=== PATIENT | male | born 2000 | race Caucasian/White ===

== ENCOUNTER 2021-03-14 10:58 | Inpatient (IN) | payer OTHER ==
[~2021-03-14] VITALS: Ht 182.9 cm; Wt 82.1 kg
[~2021-03-14 10:58] MED LIST: CLARITIN10 MG PO
[2021-03-14 10:59] VITALS: BP 94/58
[2021-03-14] MEDS ORDERED: FLONASE 0.05%50 MCG NARES (11:02)
[2021-03-14 11:39] LABS: ABSOLUTE LYMPHOCYTES 1.4 thou/uL (0.8-5.3); ABSOLUTE MONOCYTES 0.3 thou/uL (0.0-1.2); ABSOLUTE NEUTROPHILS 4.2 thou/uL (1.6-8.1); BASOPHILS 0.3 %; HEMATOCRIT 45.2 % (42.0-52.0); HEMOGLOBIN 15.6 gm/dL (14.0-18.0); LYMPHOCYTES 23.7 %; MCH 29.7 pg (26.0-34.0); MCHC 34.4 g/dL (28.0-37.0); MCV 86.3 fL (80.0-100.0); MONOCYTES 5.7 %; MPV 7.9 fl. (7.2-11.1); NUCLEATED RBCS 0 /100WBC; PLATELET COUNT* 184 thou/uL (150-400); POLYS 70.3 %; RBC 5.24 mil/uL (4.50-6.00); RDW-CV 14.3 % (10.5-14.5)
[2021-03-14 11:48] LABS: CREATININE 1.1 mg/dL (0.6-1.3); POTASSIUM 3.9 mmol/L (3.5-5.1)
[2021-03-14 11:53] LABS: ALBUMIN 3.3 g/dL (3.4-5.0); TOTAL BILIRUBIN 0.7 mg/dL (<0.1-1.0); TOTAL PROTEIN 8.6 g/dL (6.4-8.2)
[2021-03-14 16:30] VITALS: BP 96/48
[2021-03-14 19:13] VITALS: BP 105/58
[2021-03-14 23:59] VITALS: BP 102/57
[2021-03-15] VITALS: BP 128/80
[2021-03-15 01:20] LABS: HEMATOCRIT 45.4 % (42.0-52.0); HEMOGLOBIN 15.5 gm/dL (14.0-18.0); MCH 29.4 pg (26.0-34.0); MCHC 34.1 g/dL (28.0-37.0); MCV 86.4 fL (80.0-100.0); RBC 5.26 mil/uL (4.50-6.00); RDW-CV 14.6 % (10.5-14.5); WBC 5.6 thou/uL (4.0-11.0)
[2021-03-15 01:45] LABS: CALCIUM 8.6 mg/dL (8.5-10.1); CREATININE 1.1 mg/dL (0.6-1.3)
[2021-03-15 03:21] LABS: BE 0.7 mmol/L (-2 to +3); PCO2 35.9 mmHg (35.0-45.0); PO2 95.2 mmHg (75.0-100.0); pH 7.448 (7.340-7.450)
[2021-03-15 04:04] VITALS: BP 110/59
[2021-03-15 08:05] VITALS: BP 106/59
[2021-03-15 09:13] VITALS: BP 87/52; BP 92/56; BP 99/52
[2021-03-15 11:35] VITALS: BP 92/56
[2021-03-15 13:29] LABS: APTT 27.9 Seconds (25.0-31.3); INR 1.1; PROTIME 11.5 Seconds (9.20-11.50)
[2021-03-15 16:00] VITALS: BP 97/57
[2021-03-16 04:19] VITALS: BP 139/89
[2021-03-16 05:28] LABS: HEMATOCRIT 40.8 % (42.0-52.0); HEMOGLOBIN 13.8 gm/dL (14.0-18.0); MCH 29.1 pg (26.0-34.0); MCHC 33.9 g/dL (28.0-37.0); MCV 85.9 fL (80.0-100.0); MPV 8.1 fl. (7.2-11.1); NUCLEATED RBCS 0 /100WBC; PLATELET COUNT* 177 thou/uL (150-400); RBC 4.75 mil/uL (4.50-6.00); WBC 4.2 thou/uL (4.0-11.0)
[2021-03-16 05:40] LABS: ALBUMIN 2.8 g/dL (3.4-5.0); CALCIUM 8.4 mg/dL (8.5-10.1); CREATININE 0.8 mg/dL (0.6-1.3); MAGNESIUM 2.3 mg/dL (1.8-2.4); PHOSPHORUS* 3.6 mg/dL (2.5-4.9); POTASSIUM 3.9 mmol/L (3.5-5.1); TOTAL BILIRUBIN 0.6 mg/dL (<0.1-1.0); TOTAL PROTEIN 7.5 g/dL (6.4-8.2)
[2021-03-16 07:55] LABS: ABSOLUTE LYMPHOCYTES 1.4 thou/uL (0.8-5.3); ABSOLUTE MONOCYTES 0.4 thou/uL (0.0-1.2); ABSOLUTE NEUTROPHILS 2.4 thou/uL (1.6-8.1); ATYPICAL LYMPHS 4 %; PLATELET ESTIMATE ADEQUATE
[2021-03-16 07:56] LABS: ANISOCYTOSIS 1+; POIKILOCYTOSIS 1+
[2021-03-16 08:00] VITALS: BP 107/68
[2021-03-16 12:00] VITALS: BP 109/65
[2021-03-16 16:00] VITALS: BP 109/56
[2021-03-16 19:50] VITALS: BP 109/59
[2021-03-16 23:46] VITALS: BP 111/67; BP 114/69
[2021-03-17 04:39] LABS: ABSOLUTE LYMPHOCYTES 1.2 thou/uL (0.8-5.3); ABSOLUTE MONOCYTES 0.5 thou/uL (0.0-1.2); BASOPHILS 0.1 %; HEMATOCRIT 41.4 % (42.0-52.0); HEMOGLOBIN 14.1 gm/dL (14.0-18.0); LYMPHOCYTES 17.7 %; MCH 29.3 pg (26.0-34.0); MCHC 34.1 g/dL (28.0-37.0); MCV 85.9 fL (80.0-100.0); MONOCYTES 7.5 %; MPV 8.4 fl. (7.2-11.1); NUCLEATED RBCS 0 /100WBC; PLATELET COUNT* 200 thou/uL (150-400); POLYS 74.7 %; RBC 4.82 mil/uL (4.50-6.00); WBC 6.7 thou/uL (4.0-11.0)
[2021-03-17 04:56] VITALS: BP 100/63
[2021-03-17 05:06] LABS: ALBUMIN 2.9 g/dL (3.4-5.0); CALCIUM 8.6 mg/dL (8.5-10.1); CREATININE 0.8 mg/dL (0.6-1.3); MAGNESIUM 2.3 mg/dL (1.8-2.4); POTASSIUM 4.1 mmol/L (3.5-5.1); TOTAL BILIRUBIN 0.6 mg/dL (<0.1-1.0); TOTAL PROTEIN 7.6 g/dL (6.4-8.2)
[2021-03-17 08:00] VITALS: BP 101/58
[2021-03-17 09:55] LABS: BE 0.3 mmol/L (-2 to +3); PCO2 37.2 mmHg (35.0-45.0); PO2 92.4 mmHg (75.0-100.0); pH 7.432 (7.340-7.450)
--- NOTE | 2021-03-17 15:08 | CON ---
[address] [address] CONSULTATION Name: GALE NICOLE Room: [place] [address] ADM IN M.R.#: [id number] Admission: 03/14/21 Attend Phys: Tammy Palomino Discharge: Date of : 01 Report #: [id number] THIS REPORT FOR: cc: Edwin Beavers Vincent R. DO Pervez, Adeel MD ~ DOC #: [id number] Augustine Ch MD DATE OF CONSULTATION: 03/15/2021 CONSULT REQUESTED BY: Dr. Gallardo. INDICATION FOR CONSULTATION: Acute hypoxemic respiratory failure secondary to COVID-19. HISTORY OF PRESENT ILLNESS: A 20 years old gentleman, he has no past medical history, was recently diagnosed with COVID-19, did receive a prednisone taper as well as azithromycin in the form of a Z-Ziyad as an outpatient. His respiratory status subsequently worsened and he was admitted to [facility]. He did receive Decadron. He did not receive remdesivir during the hospitalization. He did briefly receive doxycycline and this was subsequently discontinued when procalcitonin was normal. The duration of time he was on doxycycline also not known to me at this time. The patient subsequently went home, was on oxygen upon discharge. We will also on dexamethasone. His respiratory status worsened and then, he subsequently came to this hospital yesterday. The patient states that he is here because he is having increasing shortness of breath. He has also had a cough. He had some yellow sputum. He has had a fever. He has had chills. He has had a sore throat. He currently is not complaining of chest pain. There is no swelling of lower extremities. There is no calf pain. He answers to the negative for 12 questions for review of systems, except as mentioned above. The patient was significantly short of breath this morning and briefly was on BiPAP. PAST MEDICAL HISTORY: He has no past medical history. CURRENT MEDICATIONS: List in [employer] Reviewed. HOME MEDICATIONS: See discussion above. He has received steroids recently. As above, he received azithromycin and doxycycline briefly; however, he likely did not receive a full course of either. I do not have details available. SOCIAL HISTORY: Lifetime nonsmoker. No known history [place] [address] CONSULTATION Name: NICOLEGALE Room: [address] IN [facility]#: [id number] Admission: 03/14/21 Attend Phys: Tammy Palomino Discharge: Date of : 01 Report #: [id number] illegal drug use. ALLERGIES: No known drug allergies. FAMILY HISTORY: His father is also admitted to this hospital with COVID-19. PHYSICAL EXAMINATION: GENERAL: He is alert, awake and oriented, did not appear to be in any distress at this time. VITAL SIGNS: Pulse of 79 and respiratory rate at the time of my evaluation was around 22-23. He was at 65% FiO2 with 50 liters of 3 with a heated high-flow nasal cannula. I switched him over to a green high flow nasal cannula, so far he is saturating in the high 90s on 15 liters. He had a fever last night of 38.1. He is afebrile with a temperature of 36.3 now. HEENT: Head is normocephalic and atraumatic. Pupils are equal and reactive. His mucous membranes appear to be moist. NECK: Does not show raised JVP, asymmetry, mass or lymph nodes. CHEST: Symmetrical expansion on inspection and palpation. On auscultation, breath sounds are bilaterally equal. I do not hear any added sounds. HEART: Regular. There is no murmur. ABDOMEN: Soft and nontender. EXTREMITIES: Lower extremities show no edema. He possibly has some minimal varicose veins. SKIN: Dry and intact. NEUROLOGIC: Moves all extremities bilaterally equally and spontaneously. No focal deficit identified. IMAGING: The patient had a chest x-ray done yesterday, was reviewed and compared with the x-ray done today, both of these show extensive infiltrates consistent with COVID-19. There are some lobar infiltrates in the right middle lobe and left lower lobe as well. In addition, on the x-ray done this morning, there is interval development of subcutaneous emphysema. There is a question regarding whether the patient has apical pneumothoraces as well. LABORATORY DATA: The patient's lab work in [facility] reviewed. Elevated LFTs noted. ABGs consistent with acute type 1 respiratory failure in [facility] reviewed. D-dimer is mildly elevated at 0.54. ASSESSMENT AND PLAN: 1. Acute hypoxemic respiratory failure, secondary to COVID-19. Considering that he has some subcutaneous emphysema and it will be possible that he has tiny pneumothoraces, I will try to avoid use of BiPAP less essential. Also, we will try to reduce flow of oxygen. Therefore, I switched him over for now to green high flow nasal cannula. We will continue to titrate. [address] [address] CONSULTATION Name: GALE NICOLE Room: [facility] ADM IN M.R.#: [id number] Admission: 03/14/21 Attend Phys: Tammy Palomino Discharge: Date of : 01 Report #: [id number] 2. COVID-19, agree with dexamethasone. For now, I kept the current dose of 6 mg. Agree with remdesivir, we will continue. His liver function tests are elevated, but benefit appears to be greater than the risk. We will continue, follow liver function tests. I will go ahead and give him Actemra. He has received 1 unit of convalescent plasma. I do not feel strongly either way about giving him or holding off on the second unit. We will follow and advise. For now, I did not order. 3. Pulmonary infiltrates. There are some lobar infiltrates in the left lower lobe as well as right middle lobe. Therefore, I favor continuing with broad spectrum antibiotics. Currently, he is on vancomycin and Zosyn. He did have a sputum culture, which was sent. Prior to these being started, I ordered some more cultures and serologies. If we do not find any methicillin-resistant Staphylococcus aureus, then I will be inclined to discontinue vancomycin. I will continue Zosyn for now. Also, I will try to investigate further how many doses of Zithromax and doxycycline he already has received. If he has not received a full course, then I will be inclined to give him azithromycin for atypical coverage. 4. Evaluation for thromboembolic phenomena. My suspicion is not high at this time, but I would like to do venous Dopplers. 5. Deep venous thrombosis prophylaxis, Lovenox. I will increase dose to intermediate dose. 6. Subcutaneous emphysema/possible tiny pneumothoraces, avoiding positive airway pressure therapy if possible. We will give him nebulized bronchodilators. We will follow closely. 7. Clostridium difficile prophylaxis, Lactinex. Thanks for this consultation. The patient is critically ill at this time with acute hypoxemic respiratory failure secondary to COVID-19. Total time spent providing critical care to this patient today exceeds 41 minutes. MD JIMMY Hayes/GEOVANY <ELECTRONICALLY SIGNED> By: Augustine hC MD 03/17/21 1508 1430 [id number] Ch MD /nt
[2021-03-17 19:30] VITALS: BP 107/65
[2021-03-17 23:46] VITALS: BP 117/63
[2021-03-18] VITALS (8 sets, daily range): BP systolic 85–113; BP diastolic 46–77
[2021-03-18 13:50] LABS: ABSOLUTE LYMPHOCYTES 1.2 thou/uL (0.8-5.3); ABSOLUTE MONOCYTES 0.5 thou/uL (0.0-1.2); ABSOLUTE NEUTROPHILS 8.8 thou/uL (1.6-8.1); BASOPHILS 0.4 %; EOSINOPHILS 0.1 %; HEMATOCRIT 42.9 % (42.0-52.0); HEMOGLOBIN 14.5 gm/dL (14.0-18.0); LYMPHOCYTES 11.5 %; MCHC 33.8 g/dL (28.0-37.0); MCV 85.7 fL (80.0-100.0); MONOCYTES 4.4 %; NUCLEATED RBCS 0 /100WBC; PLATELET COUNT* 233 thou/uL (150-400); POLYS 83.6 %; RBC 5.01 mil/uL (4.50-6.00); WBC 10.5 thou/uL (4.0-11.0)
[2021-03-18 14:04] LABS: ALBUMIN 2.9 g/dL (3.4-5.0); CREATININE 0.9 mg/dL (0.6-1.3); MAGNESIUM 2.1 mg/dL (1.8-2.4); POTASSIUM 4.3 mmol/L (3.5-5.1); TOTAL BILIRUBIN 0.6 mg/dL (<0.1-1.0); TOTAL PROTEIN 7.3 g/dL (6.4-8.2)
--- NOTE | 2021-03-18 16:11 | EKG ---
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
[2021-03-18 23:06] LABS: MYCOPLASMA PNEUMONIA IgG 211 U/mL (0-99); MYCOPLASMA PNEUMONIA IgM <770 U/mL (0-769)
[2021-03-19] VITALS (17 sets, daily range): BP systolic 94–110; BP diastolic 45–71
[2021-03-19 03:20] LABS: HEMOGLOBIN 15.3 gm/dL (14.0-18.0); MCH 29.2 pg (26.0-34.0); MCV 86.1 fL (80.0-100.0); RBC 5.23 mil/uL (4.50-6.00); RDW-CV 14.2 % (10.5-14.5)
[2021-03-19 03:28] LABS: CALCIUM 8.2 mg/dL (8.5-10.1); CREATININE 0.8 mg/dL (0.6-1.3); POTASSIUM 4.3 mmol/L (3.5-5.1)
[2021-03-20] VITALS (16 sets, daily range): BP systolic 84–108; BP diastolic 36–61
[2021-03-20 03:17] LABS: ABSOLUTE LYMPHOCYTES 1.4 thou/uL (0.8-5.3); EOSINOPHILS 0.2 %; NUCLEATED RBCS 0 /100WBC
[2021-03-20 03:28] LABS: ABSOLUTE MONOCYTES 0.7 thou/uL (0.0-1.2); BASOPHILS 0.3 %; HEMATOCRIT 44.1 % (42.0-52.0); HEMOGLOBIN 14.8 gm/dL (14.0-18.0); LYMPHOCYTES 9.1 %; MCH 28.7 pg (26.0-34.0); MCHC 33.6 g/dL (28.0-37.0); MCV 85.3 fL (80.0-100.0); MONOCYTES 4.5 %; MPV 8.3 fl. (7.2-11.1); PLATELET COUNT* 205 thou/uL (150-400); POLYS 85.9 %; RBC 5.17 mil/uL (4.50-6.00); RDW-CV 14.3 % (10.5-14.5); WBC 15.1 thou/uL (4.0-11.0)
[2021-03-20 03:49] LABS: ALBUMIN 2.9 g/dL (3.4-5.0); CALCIUM 8.5 mg/dL (8.5-10.1); CREATININE 0.9 mg/dL (0.6-1.3); MAGNESIUM 2.2 mg/dL (1.8-2.4); POTASSIUM 4.2 mmol/L (3.5-5.1); TOTAL BILIRUBIN 0.5 mg/dL (<0.1-1.0); TOTAL PROTEIN 7.2 g/dL (6.4-8.2)
[2021-03-21] VITALS (17 sets, daily range): BP systolic 89–106; BP diastolic 42–77
[2021-03-21 04:29] LABS: HEMATOCRIT 44.9 % (42.0-52.0); HEMOGLOBIN 14.9 gm/dL (14.0-18.0); MCH 28.4 pg (26.0-34.0); MCHC 33.3 g/dL (28.0-37.0); MCV 85.2 fL (80.0-100.0); MPV 8.6 fl. (7.2-11.1); RBC 5.26 mil/uL (4.50-6.00); RDW-CV 13.9 % (10.5-14.5); WBC 15.7 thou/uL (4.0-11.0)
[2021-03-21 04:37] LABS: CALCIUM 8.3 mg/dL (8.5-10.1); CREATININE 0.8 mg/dL (0.6-1.3); POTASSIUM 4.1 mmol/L (3.5-5.1)
[2021-03-21 11:51] LABS: ALBUMIN 3.1 g/dL (3.4-5.0); DIRECT BILIRUBIN 0.2 mg/dL (<0.1-0.3); TOTAL BILIRUBIN 0.5 mg/dL (<0.1-1.0); TOTAL PROTEIN 6.7 g/dL (6.4-8.2)
[2021-03-22] VITALS (10 sets, daily range): BP systolic 83–140; BP diastolic 43–78
[2021-03-23] VITALS: BP 100/58
[2021-03-23 04:05] VITALS: BP 105/73
[2021-03-23 06:29] LABS: HEMATOCRIT 42.5 % (42.0-52.0); HEMOGLOBIN 14.2 gm/dL (14.0-18.0); MCH 28.8 pg (26.0-34.0); MCHC 33.4 g/dL (28.0-37.0); MCV 86.3 fL (80.0-100.0); MPV 8.6 fl. (7.2-11.1); RBC 4.93 mil/uL (4.50-6.00); WBC 13.8 thou/uL (4.0-11.0)
[2021-03-23 06:41] LABS: CALCIUM 8.4 mg/dL (8.5-10.1); CREATININE 0.7 mg/dL (0.6-1.3); POTASSIUM 3.8 mmol/L (3.5-5.1)
[2021-03-23 08:00] VITALS: BP 102/61
[2021-03-23 12:00] VITALS: BP 99/56
[2021-03-23 16:00] VITALS: BP 98/54
[2021-03-23 20:30] VITALS: BP 108/59
[2021-03-24] VITALS (20 sets, daily range): BP systolic 79–107; BP diastolic 41–65
[2021-03-24 05:57] LABS: HEMATOCRIT 43.5 % (42.0-52.0); HEMOGLOBIN 14.8 gm/dL (14.0-18.0); MCH 29.1 pg (26.0-34.0); MCV 85.7 fL (80.0-100.0); MPV 8.5 fl. (7.2-11.1); RBC 5.08 mil/uL (4.50-6.00); RDW-CV 14.1 % (10.5-14.5); WBC 10.2 thou/uL (4.0-11.0)
[2021-03-24 06:10] LABS: CALCIUM 8.3 mg/dL (8.5-10.1); CREATININE 0.7 mg/dL (0.6-1.3); POTASSIUM 3.9 mmol/L (3.5-5.1)
[2021-03-24 14:27] LABS: BE -0.4 mmol/L (-2 to +3); PCO2 38.7 mmHg (35.0-45.0)
[2021-03-24 14:28] LABS: PO2 142.9 mmHg (75.0-100.0)
[2021-03-24 15:34] LABS: HEMATOCRIT 48.8 % (42.0-52.0); HEMOGLOBIN 16.4 gm/dL (14.0-18.0); MCHC 33.6 g/dL (28.0-37.0); MCV 86.2 fL (80.0-100.0); MPV 8.7 fl. (7.2-11.1); NUCLEATED RBCS 0 /100WBC; PLATELET COUNT* 240 thou/uL (150-400); RBC 5.66 mil/uL (4.50-6.00); RDW-CV 14.4 % (10.5-14.5); WBC 14.8 thou/uL (4.0-11.0)
[2021-03-24 15:57] LABS: ALBUMIN 3.9 g/dL (3.4-5.0); ALKALINE PHOSPHATASE 61 U/L (46-116); ANION GAP 6 mmol/L (7-16); BUN 30 mg/dL (7-18); CALCIUM 8.9 mg/dL (8.5-10.1); CHLORIDE 101 mmol/L (98-107); CO2 29 mmol/L (21-32); CREATININE 0.8 mg/dL (0.6-1.3); GLUCOSE 107 mg/dL (70-99); LIPASE 672 U/L (73-393); MAGNESIUM 2.3 mg/dL (1.8-2.4); POTASSIUM 3.9 mmol/L (3.5-5.1); SGOT 39 U/L (15-37); SGPT 208 U/L (30-65); SODIUM 136 mmol/L (136-145); TOTAL BILIRUBIN 0.7 mg/dL (<0.1-1.0); TROPONIN-I LEVEL <0.06 ng/mL (<0.06)
[2021-03-24 16:07] LABS: ABSOLUTE MONOCYTES 0.4 thou/uL (0.0-1.2); ABSOLUTE NEUTROPHILS 13.3 thou/uL (1.6-8.1); ATYPICAL LYMPHS 2 %; PLATELET ESTIMATE ADEQUATE
[2021-03-25] VITALS (39 sets, daily range): BP systolic 88–102; BP diastolic 36–64
[2021-03-25 06:24] LABS: ABSOLUTE BASOPHILS 0.1 thou/uL (0.0-0.2); ABSOLUTE LYMPHOCYTES 2.2 thou/uL (0.8-5.3); ABSOLUTE MONOCYTES 1.4 thou/uL (0.0-1.2); ABSOLUTE NEUTROPHILS 13.8 thou/uL (1.6-8.1); BASOPHILS 0.4 %; EOSINOPHILS 0.1 %; HEMATOCRIT 43.9 % (42.0-52.0); HEMOGLOBIN 14.7 gm/dL (14.0-18.0); LYMPHOCYTES 12.8 %; MCH 28.6 pg (26.0-34.0); MCHC 33.5 g/dL (28.0-37.0); MCV 85.5 fL (80.0-100.0); MONOCYTES 7.9 %; MPV 8.8 fl. (7.2-11.1); NUCLEATED RBCS 0 /100WBC; PLATELET COUNT* 194 thou/uL (150-400); POLYS 78.8 %; RBC 5.13 mil/uL (4.50-6.00); RDW-CV 14.2 % (10.5-14.5); WBC 17.5 thou/uL (4.0-11.0)
[2021-03-25 06:34] LABS: CALCIUM 8.4 mg/dL (8.5-10.1); CREATININE 0.7 mg/dL (0.6-1.3); MAGNESIUM 2.2 mg/dL (1.8-2.4); PHOSPHORUS* 4.2 mg/dL (2.5-4.9); POTASSIUM 3.8 mmol/L (3.5-5.1)
--- NOTE | 2021-03-25 17:28 | EKG ---
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 : 2000 Requested By: Harrison Gallardo Order Number: [id number] Reading MD: Willie Polanco Measurements Intervals [place] Rate: 84 P: 52 ND: 170 QRS: 35 QRSD: 94 T: 43 QT: 374 QTc: 443 Interpretive Statements Sinus rhythm ST elev, probable normal early repol pattern Compared to ECG 03/18/2021 08:19:52 ST (T wave) deviation now present Electronically Signed On 03-25-2021 17:28:24 CDT by Willie Polanco [email or web address] <ELECTRONICALLY SIGNED> By: Willie Polanco MD, FAC 03/25/21 1728 1800 1800 Willie Polanco MD, [facility] /EPI
[2021-03-26] VITALS (30 sets, daily range): BP systolic 83–114; BP diastolic 37–76
[2021-03-26 05:41] LABS: ABSOLUTE EOSINOPHILS 0.1 thou/uL (0.0-0.7); ABSOLUTE LYMPHOCYTES 2.5 thou/uL (0.8-5.3); ABSOLUTE MONOCYTES 1.4 thou/uL (0.0-1.2); ABSOLUTE NEUTROPHILS 9.8 thou/uL (1.6-8.1); BASOPHILS 0.3 %; EOSINOPHILS 0.9 %; HEMATOCRIT 41.4 % (42.0-52.0); HEMOGLOBIN 13.9 gm/dL (14.0-18.0); LYMPHOCYTES 18.3 %; MCH 28.9 pg (26.0-34.0); MCHC 33.6 g/dL (28.0-37.0); MCV 86.2 fL (80.0-100.0); MONOCYTES 9.8 %; MPV 8.9 fl. (7.2-11.1); NUCLEATED RBCS 0 /100WBC; PLATELET COUNT* 167 thou/uL (150-400); POLYS 70.7 %; RBC 4.81 mil/uL (4.50-6.00); RDW-CV 14.3 % (10.5-14.5); WBC 13.9 thou/uL (4.0-11.0)
[2021-03-26 06:08] LABS: ALBUMIN 2.9 g/dL (3.4-5.0); CALCIUM 7.9 mg/dL (8.5-10.1); CREATININE 0.7 mg/dL (0.6-1.3); MAGNESIUM 2.1 mg/dL (1.8-2.4); POTASSIUM 3.9 mmol/L (3.5-5.1); TOTAL BILIRUBIN 0.4 mg/dL (<0.1-1.0); TOTAL PROTEIN 6.1 g/dL (6.4-8.2)
[2021-03-27] VITALS (40 sets, daily range): BP systolic 74–106; BP diastolic 38–67
[2021-03-27 14:33] LABS: HEMATOCRIT 41.9 % (42.0-52.0); HEMOGLOBIN 14.3 gm/dL (14.0-18.0); MCH 29.1 pg (26.0-34.0); MCHC 34.1 g/dL (28.0-37.0); MCV 85.3 fL (80.0-100.0); MPV 8.5 fl. (7.2-11.1); NUCLEATED RBCS 0 /100WBC; PLATELET COUNT* 186 thou/uL (150-400); RBC 4.91 mil/uL (4.50-6.00); WBC 14.3 thou/uL (4.0-11.0)
[2021-03-27 14:48] LABS: ALBUMIN 3.2 g/dL (3.4-5.0); CALCIUM 8.3 mg/dL (8.5-10.1); CREATININE 0.8 mg/dL (0.6-1.3); POTASSIUM 4.2 mmol/L (3.5-5.1); TOTAL BILIRUBIN 0.5 mg/dL (<0.1-1.0); TOTAL PROTEIN 6.5 g/dL (6.4-8.2)
[2021-03-27 14:52] LABS: ABSOLUTE LYMPHOCYTES 1.6 thou/uL (0.8-5.3); ABSOLUTE MONOCYTES 0.3 thou/uL (0.0-1.2); ABSOLUTE NEUTROPHILS 12.4 thou/uL (1.6-8.1)
[2021-03-27 14:53] LABS: PLATELET ESTIMATE ADEQUATE
[2021-03-28] VITALS (28 sets, daily range): BP systolic 81–108; BP diastolic 32–64
[2021-03-28 05:22] LABS: ABSOLUTE BASOPHILS 0.1 thou/uL (0.0-0.2); ABSOLUTE EOSINOPHILS 0.1 thou/uL (0.0-0.7); ABSOLUTE LYMPHOCYTES 2.8 thou/uL (0.8-5.3); ABSOLUTE MONOCYTES 1.2 thou/uL (0.0-1.2); ABSOLUTE NEUTROPHILS 10.4 thou/uL (1.6-8.1); BASOPHILS 0.4 %; EOSINOPHILS 0.8 %; HEMATOCRIT 40.7 % (42.0-52.0); HEMOGLOBIN 13.8 gm/dL (14.0-18.0); LYMPHOCYTES 19.2 %; MCH 29.2 pg (26.0-34.0); MCHC 33.8 g/dL (28.0-37.0); MCV 86.4 fL (80.0-100.0); MONOCYTES 8.5 %; MPV 8.4 fl. (7.2-11.1); NUCLEATED RBCS 0 /100WBC; PLATELET COUNT* 159 thou/uL (150-400); POLYS 71.1 %; RBC 4.71 mil/uL (4.50-6.00); RDW-CV 14.3 % (10.5-14.5); WBC 14.7 thou/uL (4.0-11.0)
[2021-03-28 05:35] LABS: CALCIUM 8.1 mg/dL (8.5-10.1); CREATININE 0.6 mg/dL (0.6-1.3); POTASSIUM 3.7 mmol/L (3.5-5.1)
[2021-03-29] VITALS (15 sets, daily range): BP systolic 79–103; BP diastolic 36–70
[2021-03-29 02:09] LABS: CALCIUM 8.7 mg/dL (8.5-10.1); CREATININE 0.7 mg/dL (0.6-1.3)
--- NOTE | 2021-03-29 10:24 | EKG ---
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[employer]: ANJANA : 2000 Requested By: Harrison Gallardo Order Number: [id number] Reading MD: Alexis Kate Measurements Intervals [place] Rate: 61 P: 52 IA: 175 QRS: 31 QRSD: 115 T: 29 QT: 414 QTc: 417 Interpretive Statements Sinus rhythm Nonspecific intraventricular conduction delay ST elev, probable normal early repol pattern Compared to ECG 03/24/2021 18:00:58 ST (T wave) deviation still present Electronically Signed On 03-29-2021 10:24:01 CDT by Alexis Kate [email or web address] <ELECTRONICALLY SIGNED> By: Alexis Kate MD, [facility] 03/29/21 1024 0129 0129 Alexis Kate MD, [facility] /EPI
[2021-03-29 13:12] LABS: BE 0.6 mmol/L (-2 to +3); PCO2 44.1 mmHg (35.0-45.0); pH 7.388 (7.340-7.450)
[2021-03-30 00:05] VITALS: BP 100/65
[2021-03-30 03:56] VITALS: BP 93/47
[2021-03-30 06:25] LABS: HEMOGLOBIN 13.6 gm/dL (14.0-18.0); MCH 29.3 pg (26.0-34.0); MCV 86.1 fL (80.0-100.0); MPV 8.3 fl. (7.2-11.1); RBC 4.65 mil/uL (4.50-6.00); RDW-CV 14.3 % (10.5-14.5); WBC 11.8 thou/uL (4.0-11.0)
[2021-03-30 06:34] LABS: CALCIUM 8.4 mg/dL (8.5-10.1); CREATININE 0.7 mg/dL (0.6-1.3); POTASSIUM 3.7 mmol/L (3.5-5.1)
[2021-03-30 09:00] VITALS: BP 102/57
[2021-03-30 13:33] VITALS: BP 117/69
[2021-03-30 16:00] VITALS: BP 94/58
[2021-03-31 04:07] VITALS: BP 87/45
[2021-03-31 04:36] LABS: HEMATOCRIT 39.8 % (42.0-52.0); HEMOGLOBIN 13.3 gm/dL (14.0-18.0); MCH 29.1 pg (26.0-34.0); MCHC 33.3 g/dL (28.0-37.0); MCV 87.3 fL (80.0-100.0); MPV 8.3 fl. (7.2-11.1); RBC 4.56 mil/uL (4.50-6.00); RDW-CV 14.7 % (10.5-14.5)
[2021-03-31 04:57] LABS: CALCIUM 8.5 mg/dL (8.5-10.1); CREATININE 0.7 mg/dL (0.6-1.3); POTASSIUM 3.9 mmol/L (3.5-5.1)
[2021-03-31 08:22] VITALS: BP 98/56
[2021-03-31] MEDS ORDERED: PROAIR HFA8.5 GM INH (11:17)
[2021-03-31] MEDS ORDERED: MEDROL DOSPAK21 TA1 PO (11:17)
[2021-03-31 11:47] VITALS: BP 103/60
[2021-03-31 15:33] VITALS: BP 111/64
[2021-04-01 01:08] VITALS: BP 102/58
[2021-04-01 05:43] VITALS: BP 131/80
[2021-04-01 12:00] VITALS: BP 97/47
[2021-04-01 15:42] VITALS: BP 97/47
[2021-04-01 15:46] VITALS: BP 97/47
--- NOTE | 2021-04-01 15:54 | 2DMMODE ---
[place] [address] 2 D/M-MODE ECHOCARDIOGRAM Name: NICOLEGALE Room: [address] ADM IN .Sandra.#: [id number] Admission: 03/14/21 Attend Phys: Harrison Gallardo Discharge: Date of : 01 Date of Service: 04/01/21 1554 Report #: [id number] THIS REPORT FOR: cc: Edwin Beavers Vincent R. DO Liston,Willie Melo MD [facility] ~ APPROVED REPORT Study performed: 04/01/2021 10:32:59 EXAM: Comprehensive 2D, Doppler, and color-flow Echocardiogram Patient Location: In-Patient Room #: 207 Status: routine BSA: 2.04 HR: 85 bpm BP: 131/80 mmHg Rhythm: NSR Other Information Study Quality: Good Indications hypoxemia 2D Dimensions IVSd: 8.31 (7-11mm) LVOT Diam: 21.55 (18-24mm) LVDd: 53.69 mm PWd: 8.60 (7-11mm) Ascending Ao: 30.23 (22-36mm) LVDs: 34.60 (25-40mm) Aortic Root: 30.17 mm Volumes Left Atrial Volume (Systole) LA ESV Index: 20.70 mL/m2 Aortic Valve AoV Peak Subhash.: 1.05 m/s AO Peak Gr.: 4.42 mmHg LVOT Max P.77 mmHg AO Mean Gr.: 2.31 mmHg LVOT Mean P.77 mmHg LVOT Max V: 0.97 m/s AO V2 VTI: 16.34 cm LVOT Mean V: 0.61 m/s OLEG (VTI): 3.49 cm2 LVOT V1 VTI: 15.62 [place] [address] 2 D/M-MODE ECHOCARDIOGRAM Name: GALE NICOLE Room: [address] IN .R.#: [id number] Admission: 03/14/21 Attend Phys: Harrison Gallardo Discharge: Date of : 01 Date of Service: 04/01/21 1554 Report #: [id number] Mitral Valve E/A Ratio: 1.34 MV Decel. Time: 261.06 ms MV E Max Subhash.: 0.66 m/s MV PHT: 75.71 ms MVA (PHT): 2.91 cm2 TDI E/Lateral E': 3.30 E/Medial E': 4.13 Medial E' Subhash.: 0.16 m/s Lateral E' Subhash.: 0.20 m/s Pulmonary Valve PV Peak Subhash.: 0.99 m/s PV Peak Gr.: 3.92 mmHg Tricuspid Valve RAP Estimate: 5.00 mmHg TR Peak Gr.: 17.40 mmHg RVSP: 22.00 mmHg PA Pressure: 22.00 mmHg Left Ventricle The left ventricle is normal size. There is normal LV segmental wall motion. There is normal left ventricular wall thickness. Left ventricular systolic function is normal. LVEF is 55-60%. Grade IV - fixed restrictive diastolic dysfunction. Right Ventricle The right ventricle is normal size. The right ventricular systolic function is normal. Atria The left atrium size is normal. The right atrium size is normal. Aortic Valve The aortic valve is normal in structure. No aortic regurgitation is present. There is no aortic valvular stenosis. Mitral Valve The mitral valve is normal in structure. There is no mitral valve regurgitation noted. No evidence of mitral valve stenosis. Tricuspid Valve The tricuspid valve is normal in structure. Mild tricuspid regurgitation. [place] [address] 2 D/M-MODE ECHOCARDIOGRAM Name: GALE NICOLE Room: [address] IN [facility]#: [id number] Admission: 03/14/21 Attend Phys: Harrison Gallardo Discharge: Date of : 01 Date of Service: 04/01/21 1554 Report #: [id number] Pulmonic Valve The pulmonary valve is normal in structure. There is no pulmonic valvular regurgitation. Great Vessels The aortic root is normal in size. IVC is normal in size and collapses >50% with inspiration. Pericardium There is no pericardial effusion. <Conclusion> The left ventricle is normal size. There is normal left ventricular wall thickness. Left ventricular systolic function is normal. LVEF is 55-60%. Grade IV - fixed restrictive diastolic dysfunction. There is normal LV segmental wall motion. Mild tricuspid regurgitation. IVC is normal in size and collapses >50% with inspiration. <ELECTRONICALLY SIGNED> By: Willie Polanco MD, [facility] 04/01/21 1554 1554 1554 Willie Polanco MD, FAC /INF
[2021-04-01 16:00] VITALS: BP 94/57
[2021-04-01] MEDS ORDERED: MIDODRINE HCL10 MG PO (21:53)
== END 2021-04-01 18:33 | disposition home or self-care (01) | DRG 871 ==
LOC: M.ERS 10:58 → M.TBA-ER 12:05 → M.2W 12:05 → M.ICU 03-18 19:40 → M.2W 03-22 17:30 → M.ICU 03-24 13:48 → M.2W 03-29 16:58
PROVIDERS: Emergency Medicine; Family Medicine; Internal Medicine Critical Care Medicine; Pediatrics; ADMIT Internal Medicine; ATTEND Internal Medicine
PROC: 5A09357 Assistance with Respiratory Ventilation, Less than 24 Consecutive Hours, Continuous Positive Airway Pressure (ICD-10-PCS; principal; 2021-03-14)
PROC: 5A0945A Assistance with Respiratory Ventilation, 24-96 Consecutive Hours, High Flow/Velocity Cannula (ICD-10-PCS; 2021-03-15)
PROC: XW13325 Transfusion of Convalescent Plasma (Nonautologous) into Peripheral Vein, Percutaneous Approach, New Technology Group 5 (ICD-10-PCS; 2021-03-15)
PROC: XW033E5 Introduction of Remdesivir Anti-infective into Peripheral Vein, Percutaneous Approach, New Technology Group 5 (ICD-10-PCS; 2021-03-15)
PROC: 5A0955A Assistance with Respiratory Ventilation, Greater than 96 Consecutive Hours, High Flow/Velocity Cannula (ICD-10-PCS; 2021-03-19)
PROC: 5A0945A Assistance with Respiratory Ventilation, 24-96 Consecutive Hours, High Flow/Velocity Cannula (ICD-10-PCS; 2021-03-26)
PROC: 5A0935A Assistance with Respiratory Ventilation, Less than 24 Consecutive Hours, High Flow/Velocity Cannula (ICD-10-PCS; 2021-03-29)
DX: A41.89 Other specified sepsis (principal); U07.1 COVID-19; J12.82 Pneumonia due to coronavirus disease 2019; J96.21 Acute and chronic respiratory failure with hypoxia; T79.7XXA Traumatic subcutaneous emphysema, initial encounter; I95.9 Hypotension, unspecified; R74.01 Elevation of levels of liver transaminase levels; X58.XXXA Exposure to other specified factors, initial encounter; Y93.89 Activity, other specified; Y92.89 Other specified places as the place of occurrence of the external cause; Y99.8 Other external cause status

== ENCOUNTER → 2021-04-21 | Outpatient (CLI) | payer OTHER ==
[~2021-04-21] MED LIST changes: +FLONASE 0.05%50 MCG NARES; +MEDROL DOSPAK21 TA1 PO; +MIDODRINE HCL10 MG PO; +PROAIR HFA8.5 GM INH
[2021-04-21 10:29] LABS: ABSOLUTE BASOPHILS 0.1 thou/uL (0.0-0.2); ABSOLUTE EOSINOPHILS 0.3 thou/uL (0.0-0.7); ABSOLUTE LYMPHOCYTES 1.6 thou/uL (0.8-5.3); ABSOLUTE MONOCYTES 0.7 thou/uL (0.0-1.2); ABSOLUTE NEUTROPHILS 4.2 thou/uL (1.6-8.1); BASOPHILS 1.1 %; HEMATOCRIT 42.5 % (42.0-52.0); HEMOGLOBIN 14.4 gm/dL (14.0-18.0); LYMPHOCYTES 23.7 %; MCH 30.1 pg (26.0-34.0); MCHC 33.9 g/dL (28.0-37.0); MCV 88.5 fL (80.0-100.0); MONOCYTES 10.2 %; MPV 7.6 fl. (7.2-11.1); NUCLEATED RBCS 0 /100WBC; PLATELET COUNT* 252 thou/uL (150-400); RDW-CV 16.2 % (10.5-14.5); WBC 6.9 thou/uL (4.0-11.0)
[2021-04-21 10:54] LABS: ALBUMIN 4.2 g/dL (3.4-5.0); ALKALINE PHOSPHATASE 77 U/L (46-116); ANION GAP 7 mmol/L (7-16); BUN 13 mg/dL (7-18); CALCIUM 9.5 mg/dL (8.5-10.1); CHLORIDE 104 mmol/L (98-107); CO2 30 mmol/L (21-32); CREATININE 0.9 mg/dL (0.6-1.3); GLUCOSE 88 mg/dL (70-99); SGOT 21 U/L (15-37); SGPT 48 U/L (30-65); SODIUM 141 mmol/L (136-145); TOTAL BILIRUBIN 0.3 mg/dL (<0.1-1.0); TOTAL PROTEIN 7.8 g/dL (6.4-8.2); TROPONIN-I LEVEL <0.06 ng/mL (<0.06)
[2021-04-21 11:40] LABS: ESR (SEDRATE) 5 mm/hr (0-15)
== END ==
LOC: M.LAB 09:52
PROVIDERS: ATTEND Family Medicine
DX: U07.1 COVID-19 (principal); B37.9 Candidiasis, unspecified; R06.00 Dyspnea, unspecified; I95.9 Hypotension, unspecified

== ENCOUNTER 2021-04-24 01:45 | Emergency (ER) | payer OTHER | END 2021-04-24 04:45 | disposition home or self-care (01) | LOC: M.ERS 01:45 | DX: R04.0 Epistaxis (principal) ==

== ENCOUNTER → 2021-08-11 | Outpatient (CLI) | payer OTHER | LOC: M.RAD 08:36 | PROVIDERS: ATTEND Internal Medicine Critical Care Medicine | DX: R91.8 Other nonspecific abnormal finding of lung field (principal); Z86.16 Personal history of COVID-19 ==